=== PATIENT | male | born 1970 | race Asian ===

== ENCOUNTER 2017-03-06 11:00 | Emergency (ER) | payer MEDICARE, MEDICAID ==
[~2017-03-06] VITALS: Ht 172.7 cm; Wt 73.6 kg
[~2017-03-06 11:00] MED LIST: ARIP10TA14 PO; ASPI-1093 PO; BENZ2TAB10 PO; DIVA500T52 PO; GLIM2 PO; LEVO100 PO; LURA40 PO; METF500T4 PO; PANT40TA25 PO; QUET200T PO; RANO500T3 PO; SIMV-261 PO; TIOT185 IH
[2017-03-06 11:17] LABS: GLUCOSE,POINT OF CARE 351 MG/DL (70-110)
[2017-03-06 11:39] LABS: BASOPHILS % (AUTO) 0.7 % (0.0-2.0); EOSINOPHILS % (AUTO) 1.4 % (1.0-6.0); HEMATOCRIT 38.2 % (41-53); LYMPHOCYTES # (AUTO) 2.5 K/uL (1.0-4.8); LYMPHOCYTES % (AUTO) 46.2 % (22.0-44.0); MEAN CORPUSCULAR HEMOGLOBIN 31.5 pg (26.0-34.0); MEAN CORPUSCULAR VOLUME 93 fL (80-100); MONOCYTES # (AUTO) 0.3 K/uL (0.1-1.0); MONOCYTES % (AUTO) 5.8 % (2.0-9.0); NEUTROPHILS # (AUTO) 2.5 K/uL (1.8-7.7); NEUTROPHILS % (AUTO) 45.9 % (40.0-70.0); PLATELET COUNT (AUTO) 257 K/uL (150-450); RED BLOOD CELL COUNT(AUTO) 4.13 MIL/uL (4.50-5.90); RED CELL DISTRIBUTION WIDTH 13.9 % (11.5-14.5); WHITE BLOOD COUNT (AUTO) 5.4 K/uL (4.5-11.0)
[2017-03-06 11:50] LABS: ANION GAP 8 mmol/L (8-16); CALCIUM, TOTAL 8.5 mg/dL (8.8-10.5); CARBON DIOXIDE 28 mmol/L (22-29); CHLORIDE 101 mmol/L (98-107); CREATININE 0.97 mg/dL (0.60-1.30); GLOMERULAR FILTR. RATE CALC > 60 mL/min (>60); SODIUM SERUM 137 mmol/L (136-145); UREA NITROGEN, BLOOD 11 mg/dL (7-18)
[2017-03-06 11:51] LABS: INR 1.1 (0.9-1.1); PROTHROMBIN TIME 11.1 SEC (9.4-11.6)
[2017-03-06 11:58] LABS: AMMONIA 32 umol/L (11-32)
[2017-03-06 11:59] LABS: TROPONIN I < 0.02 ng/mL (0.00-0.05)
[2017-03-06 12:14] LABS: SALICYLATE 4.8 mg/dL (2.8-20.0)
[2017-03-06 12:15] LABS: ACETAMINOPHEN 3 mcg/mL (10-30); ALANINE AMINOTRANSFERASE 13 U/L (12-78); ALBUMIN 3.1 g/dL (3.4-5.0); ASPARTATE AMINOTRANSFERASE 9 U/L (15-37); BILIRUBIN,TOTAL 0.2 mg/dL (0.1-1.0); CREATINE KINASE MB 1.2 ng/mL (0-5); CREATINE KINASE, TOTAL 118 U/L (39-308); TOTAL PROTEIN, SERUM 6.2 g/dL (6.4-8.2); VALPROIC ACID 78 mcg/mL (50-100)
[2017-03-06 12:46] LABS: APPEARANCE,URINE CLEAR (CLEAR); GLUCOSE, URINE (UA) >=1000 mg/dL (NEGATIVE); KETONES,URINE 15 mg/dL (NEGATIVE); LEUKOCYTE ESTERASE ,URINE NEGATIVE (NEGATIVE); OCCULT BLOOD,URINE NEGATIVE (NEGATIVE); PROTEIN,URINE NEGATIVE (NEGATIVE)
[2017-03-06 12:50] LABS: ADD UA MICROSCOPIC YES; RBC,URINE None Seen /HPF (0-2); WBC,URINE None Seen /HPF (0-5)
[2017-03-06 13:27] VITALS: BP 116/93
== END 2017-03-06 13:56 | disposition home or self-care (01) ==
LOC: EMS 11:02
DX: F25.9 Schizoaffective disorder, unspecified (principal); G93.40 Encephalopathy, unspecified; E11.65 Type 2 diabetes mellitus with hyperglycemia; J44.9 Chronic obstructive pulmonary disease, unspecified; J45.909 Unspecified asthma, uncomplicated
CPT/HCPCS: 36415; 51702; 71010; 80053; 80164; 80307; 81001; 82140; 82550; 82553; 82962; 84484; 85025; 85610; 93005; 99285; G0480; G0481

== ENCOUNTER 2017-12-17 22:34 | Emergency (ER) | payer MEDICARE, MEDICAID ==
[~2017-12-17] VITALS: Ht 167.6 cm; Wt 79.5 kg
[~2017-12-17 22:34] MED LIST changes: -ARIP10TA14 PO; +ARIP10TA8 PO; -ASPI-1093 PO; +ASPI-1182 PO; -METF500T4 PO; +METF500T6 PO
[2017-12-17 22:56] LABS: GLUCOSE,POINT OF CARE 318 MG/DL (70-110)
[2017-12-18 03:16] VITALS: BP 108/61
== END 2017-12-18 03:41 | disposition home or self-care (01) ==
LOC: EMS 22:35
DX: T49.2X1A Poisoning by local astringents and local detergents, accidental (unintentional), initial encounter (principal); J45.909 Unspecified asthma, uncomplicated; J44.9 Chronic obstructive pulmonary disease, unspecified; E11.9 Type 2 diabetes mellitus without complications; F25.9 Schizoaffective disorder, unspecified; F17.200 Nicotine dependence, unspecified, uncomplicated; Y92.89 Other specified places as the place of occurrence of the external cause
CPT/HCPCS: 99283

== ENCOUNTER 2018-01-12 12:51 | Emergency (ER) | payer MEDICARE, MEDICAID ==
[~2018-01-12] VITALS: Ht 170.2 cm; Wt 79.5 kg
[2018-01-12 13:05] LABS: GLUCOSE,POINT OF CARE 274 MG/DL (70-110)
[2018-01-12] MEDS ORDERED: CETIRIZINE HCL 10 MG TABLET PO ONE (13:45)
[2018-01-12] MEDS ORDERED: LEVO125 PO (13:47)
[2018-01-12 14:04] VITALS: BP 124/79
== END 2018-01-12 14:13 | disposition home or self-care (01) ==
LOC: EMS 12:52
DX: T63.411A Toxic effect of venom of centipedes and venomous millipedes, accidental (unintentional), initial encounter (principal); E11.9 Type 2 diabetes mellitus without complications; J45.909 Unspecified asthma, uncomplicated; J44.9 Chronic obstructive pulmonary disease, unspecified; F17.200 Nicotine dependence, unspecified, uncomplicated
CPT/HCPCS: 99282

== ENCOUNTER → 2018-05-16 | Outpatient (CLI) | payer MEDICARE, MEDICAID ==
[~2018-05-16] MED LIST changes: -LEVO100 PO; +LEVO125 PO; +METF-960 PO; -METF500T6 PO
[2018-05-16 16:20] LABS: ALANINE AMINOTRANSFERASE 32 U/L (12-78); ALBUMIN 3.6 g/dL (3.4-5.0); ALKALINE PHOSPHATASE 81 U/L (46-116); ASPARTATE AMINOTRANSFERASE 22 U/L (15-37); BILIRUBIN,DIRECT < 0.05 mg/dL (0.00-0.20); BILIRUBIN,TOTAL 0.2 mg/dL (0.1-1.0); CHOL/HDL RATIO 4.8 (4.2-7.3); CHOLESTEROL 105 mg/dL (131-200); GLUCOSE,FASTING 232 mg/dL (70-110); HDL CHOLESTEROL 22 mg/dL (40-60); LDL CHOL (CALC.) 36 mg/dL (0-130); TOTAL PROTEIN, SERUM 7.1 g/dL (6.4-8.2); TRIGLYCERIDES 236 mg/dL (15-150)
[2018-05-17 09:33] LABS: VALPROIC ACID 39 mcg/mL (50-100)
== END | disposition home or self-care (01) ==
LOC: LABMN 09:00
PROVIDERS: ATTEND Psychiatry & Neurology Psychiatry
DX: F25.9 Schizoaffective disorder, unspecified (principal); Z79.899 Other long term (current) drug therapy
CPT/HCPCS: 82947

== ENCOUNTER → 2018-08-27 | Outpatient (CLI) | payer MEDICARE, MEDICAID | END | disposition home or self-care (01) | LOC: LABMN 13:00 | PROVIDERS: ATTEND Psychiatry & Neurology Psychiatry | DX: F25.0 Schizoaffective disorder, bipolar type (principal) ==

== ENCOUNTER → 2018-11-13 | Outpatient (CLI) | payer MEDICARE, MEDICAID ==
[2018-11-14 18:33] LABS: CHOL/HDL RATIO 3.6 (4.2-7.3)
== END | disposition home or self-care (01) ==
LOC: LABMN 15:05
PROVIDERS: ATTEND Psychiatry & Neurology Psychiatry
DX: F25.9 Schizoaffective disorder, unspecified (principal); Z79.899 Other long term (current) drug therapy
CPT/HCPCS: 82947; 83036

== ENCOUNTER 2019-05-08 03:10 | Emergency (ER) | payer MEDICARE, MEDICAID ==
[~2019-05-08] VITALS: Ht 167.6 cm; Wt 75.0 kg
[2019-05-08] MEDS ORDERED: ACETAMINOPHEN 325 MG TABLET PO ONE (03:30)
[2019-05-08] MEDS ORDERED: LIDOCAINE 5% TRANSDERMAL PATCH TD ONE (03:30)
[2019-05-08 04:02] LABS: GLUCOSE,POINT OF CARE 222 MG/DL (70-110)
[2019-05-08 04:18] VITALS: BP 131/85
== END 2019-05-08 04:24 | disposition home or self-care (01) ==
LOC: EMS 03:13
DX: M25.512 Pain in left shoulder (principal); E11.9 Type 2 diabetes mellitus without complications; J44.9 Chronic obstructive pulmonary disease, unspecified; F20.9 Schizophrenia, unspecified; Z79.82 Long term (current) use of aspirin; Z79.899 Other long term (current) drug therapy

== ENCOUNTER → 2019-05-12 | Outpatient (CLI) | payer MEDICARE, MEDICAID | END | disposition home or self-care (01) | LOC: RADPV 08:47 | PROVIDERS: ATTEND Internal Medicine Cardiovascular Disease | DX: S12.9XXA Fracture of neck, unspecified, initial encounter (principal); M47.812 Spondylosis without myelopathy or radiculopathy, cervical region; M48.02 Spinal stenosis, cervical region; M25.78 Osteophyte, vertebrae; X58.XXXA Exposure to other specified factors, initial encounter; Y93.89 Activity, other specified; Y92.89 Other specified places as the place of occurrence of the external cause; Y99.8 Other external cause status | CPT/HCPCS: 72040 ==

== ENCOUNTER → 2022-09-19 | Outpatient (CLI) | payer MEDICARE, MEDICAID ==
[~2022-09-19] MED LIST changes: +ARIP10TA38 PO; -ARIP10TA8 PO; -ASPI-1182 PO; +ASPI-1444 PO; -BENZ2TAB10 PO; +BENZ2TAB76 PO; -DIVA500T52 PO; +DIVA500T53 PO; -LURA40 PO; +LURA40TA2 PO; +METF-1211 PO; -METF-960 PO; +PANT-31 PO; -PANT40TA25 PO; +RANO500T27 PO; -RANO500T3 PO
[2022-09-19 16:25] LABS: HEMOGLOBIN A1C 12.9 % (3.8-5.6)
[2022-09-19 16:33] LABS: CHOL/HDL RATIO 3.2 (4.2-7.3)
== END | disposition home or self-care (01) ==
LOC: LABMN 13:06
PROVIDERS: ATTEND Psychiatry & Neurology Psychiatry
DX: F25.9 Schizoaffective disorder, unspecified (principal); Z79.899 Other long term (current) drug therapy
CPT/HCPCS: 80061; 82947; 83036

== ENCOUNTER → 2022-11-01 | Outpatient (CLI) | payer MEDICARE, MEDICAID ==
[2022-11-01 12:42] LABS: HEMOGLOBIN A1C 11.7 % (3.8-5.6)
[2022-11-01 12:53] LABS: CHOL/HDL RATIO 3.2 (4.2-7.3)
== END | disposition home or self-care (01) ==
LOC: LABMN 11:43
PROVIDERS: ATTEND Psychiatry & Neurology Psychiatry
DX: F25.0 Schizoaffective disorder, bipolar type (principal); Z79.899 Other long term (current) drug therapy
CPT/HCPCS: 80061; 82947; 83036

== ENCOUNTER 2023-08-15 12:58 | Emergency (ER) | payer MEDICARE, MEDICAID ==
[~2023-08-15] VITALS: Ht 172.7 cm; Wt 70.5 kg
[~2023-08-15 12:58] MED LIST changes: +BENZ2TAB71 PO; -BENZ2TAB76 PO; +EMPA10TA3 PO; +HYDR25TA PO; +LEVO100 PO; -LEVO125 PO; -LURA40TA2 PO; +LURA60TA PO; +OMEP20CA12 PO; -PANT-31 PO; +SACU1TAB PO
[2023-08-15 13:58] VITALS: BP 9/83; PULSE 130; RESP 18; TEMP 98.7
[2023-08-15 15:02] LABS: COVID AG,FIA SOURCE NPH
[2023-08-15 15:14] LABS: PH,URINE DRUG SCREEN 6.5 (5.0-8.0)
[2023-08-15 15:30] LABS: ALCOHOL, URINE DRUG SCREEN NEGATIVE (NEGATIVE); AMPHET/METH SCREEN,URINE NEGATIVE (NEGATIVE); BARBITURATE SCREEN, URINE NEGATIVE (NEGATIVE); BENZODIAZEPINES SCREEN,URINE NEGATIVE (NEGATIVE); CANNABINOID SCREEN,URINE NEGATIVE (NEGATIVE); COCAINE SCREEN,URINE NEGATIVE (NEGATIVE); METHADONE SCREEN, URINE NEGATIVE (NEGATIVE); OPIATE SCREEN,URINE NEGATIVE (NEGATIVE); PHENCYCLIDINE SCREEN,URINE NEGATIVE (NEGATIVE)
[2023-08-15 15:33] LABS: BASOPHILS % (AUTO) 1.3 % (0.0-2.0); EOSINOPHILS % (AUTO) 0.2 % (1.0-6.0); HEMATOCRIT 40.1 % (41-53); LYMPHOCYTES # (AUTO) 1.1 K/uL (1.0-4.8); LYMPHOCYTES % (AUTO) 9.6 % (22.0-44.0); MEAN CORPUSCULAR HEMOGLOBIN 30.3 pg (26.0-34.0); MEAN CORPUSCULAR HGB CONC 32.4 G/dL (31.0-37.0); MEAN CORPUSCULAR VOLUME 93 fL (80-100); MONOCYTES # (AUTO) 0.6 K/uL (0.1-1.0); MONOCYTES % (AUTO) 5.5 % (2.0-9.0); NEUTROPHILS # (AUTO) 9.4 K/uL (1.8-7.7); NEUTROPHILS % (AUTO) 83.4 % (40.0-70.0); PLATELET COUNT (AUTO) 517 K/uL (150-450); RED BLOOD CELL COUNT(AUTO) 4.29 MIL/uL (4.50-5.90); WHITE BLOOD COUNT (AUTO) 11.3 K/uL (4.5-11.0)
[2023-08-15 15:41] LABS: SARS-COV2 (COVID) ANTIGEN,FIA Negative (Negative)
[2023-08-15 15:44] LABS: ANION GAP 11 mmol/L (8-16); CARBON DIOXIDE 29 mmol/L (22-29); CHLORIDE 94 mmol/L (98-107); CREATININE 0.86 mg/dL (0.60-1.30); GLOMERULAR FILTR. RATE CALC > 60 mL/min (>60); GLUCOSE,RANDOM 339 mg/dL (70-110); POTASSIUM 4.3 mmol/L (3.5-5.1); SODIUM SERUM 134 mmol/L (136-145); UREA NITROGEN, BLOOD 11 mg/dL (7-18)
[2023-08-15 15:57] LABS: ALANINE AMINOTRANSFERASE 28 U/L (12-78); ALKALINE PHOSPHATASE 199 U/L (46-116); ASPARTATE AMINOTRANSFERASE 26 U/L (15-37); BILIRUBIN,TOTAL 0.2 mg/dL (0.1-1.0); TOTAL PROTEIN, SERUM 8.5 g/dL (6.4-8.2)
[2023-08-15 16:00] LABS: VALPROIC ACID < 3 mcg/mL (50-100)
[2023-08-15 17:24] LABS: ALCOHOL, BLOOD (SERUM) < 3 mg/dL (0-10)
== END 2023-08-15 16:52 | disposition left against medical advice (07) ==
LOC: EMS 13:01
DX: R44.3 Hallucinations, unspecified (principal); Z53.21 Procedure and treatment not carried out due to patient leaving prior to being seen by health care provider; Z20.822 Contact with and (suspected) exposure to COVID-19
CPT/HCPCS: 99281; 87426; 80053; 80164; 84443; 85025; 36415; 80307; G0480